=== PATIENT | female | born 1995 | race Caucasian/White ===

== ENCOUNTER 2018-01-29 10:14 | Emergency (ER) | payer OTHER ==
[~2018-01-29] VITALS: Ht 154.9 cm; Wt 44.0 kg
[~2018-01-29 10:14] MED LIST: CEPH250C16 PO
[2018-01-29 10:18] VITALS: BP 113/82
--- NOTE | 2018-01-29 10:22 | NUR ---
PT AMBULATES TO BED 8
--- NOTE | 2018-01-29 10:26 | NUR ---
PATIENT PRESENTS TO ED WITH C/O AB PAIN X 2 DAYS LOLA LOWER QUAD, N/V/D LAST NIGHT . DENIES ANY FEVER, CP, SOB, OR COUGH AT THIS TIME; PATIENT STATES PAIN OF 10/10 AT THIS TIME; VSS; PATIENT POSITIONED FOR COMFORT; HOB ELEVATED; BEDRAILS UP X2; BED DOWN. ER MD MADE AWARE OF PT STATUS.
--- NOTE | 2018-01-29 10:42 | NUR ---
Patient being evaluated by physician at bedside.
[2018-01-29] MEDS ORDERED: DICYCLOMINE HCL LIQUID 10 MG/5 ML UDC PO ONE (10:55)
[2018-01-29] MEDS ORDERED: LOPERAMIDE 2 MG CAP PO ONE (10:55)
[2018-01-29 11:25] VITALS: BP 113/82
--- NOTE | 2018-01-29 11:25 | NUR ---
Patient discharged with v/s stable. Written and verbal after care instructions given and explained. Patient alert, oriented and verbalized understanding of instructions. Ambulatory with steady gait. All questions addressed prior to discharge. ID band removed. Patient advised to follow up with PMD. Rx of BENTYL, IMODIUM given. Patient educated on indication of medication including possible reaction and side effects. Opportunity to ask questions provided and answered.
== END 2018-01-29 11:25 | disposition home or self-care (01) ==
LOC: MED 10:14
DX: R19.7 Diarrhea, unspecified (principal); R10.30 Lower abdominal pain, unspecified; R50.9 Fever, unspecified; R11.2 Nausea with vomiting, unspecified; Z88.0 Allergy status to penicillin; Z88.1 Allergy status to other antibiotic agents; Z79.899 Other long term (current) drug therapy
CPT/HCPCS: 81002; 81025; 99283

== ENCOUNTER 2018-06-05 10:04 | Emergency (ER) | payer OTHER ==
[~2018-06-05] VITALS: Ht 154.9 cm; Wt 39.5 kg
[2018-06-05 10:11] VITALS: BP 124/80
--- NOTE | 2018-06-05 10:16 | NUR ---
PT TO ED WITH C/O TONSIL PAIN. PT DENIES DIFFICULTY SWALLOWING OR SOB. PT PLACED INTO BED, PENDING MD GARCIA.
--- NOTE | 2018-06-05 10:16 | NUR ---
PATIENT AMBULATED TO BED 5.
[2018-06-05] MEDS ORDERED: IBUPROFEN 400 MG TAB PO ONE (10:30)
[2018-06-05] MEDS ORDERED: DEXAMETHASONE 10 MG/ML VIAL IM ONE (10:30)
[2018-06-05 10:49] VITALS: BP 124/80
--- NOTE | 2018-06-05 10:49 | NUR ---
Patient discharged with v/s stable. Written and verbal after care instructions given and explained. Patient alert, oriented and verbalized understanding of instructions. Ambulatory with steady gait. All questions addressed prior to discharge. ID band removed. Patient advised to follow up with PMD. Rx of NAPROSYN, NORCO given. Patient educated on indication of medication including possible reaction and side effects. Opportunity to ask questions provided and answered.
== END 2018-06-05 10:49 | disposition home or self-care (01) ==
LOC: MED 10:04
DX: J36 Peritonsillar abscess (principal); Z88.0 Allergy status to penicillin; Z88.1 Allergy status to other antibiotic agents; Z79.2 Long term (current) use of antibiotics
CPT/HCPCS: 96372; 99283; J1100

== ENCOUNTER 2019-06-27 15:40 | Emergency (ER) | payer OTHER ==
[~2019-06-27] VITALS: Ht 154.9 cm; Wt 45.0 kg
[2019-06-27 15:51] VITALS: BP 121/78
--- NOTE | 2019-06-27 16:03 | NUR ---
AMBULATED TO BED 5
--- NOTE | 2019-06-27 16:21 | NUR ---
23F C/O BL LOWER BACK PAIN RADIATING TO all 4 quadrents of the ABDOMEN X 2 WKS WORSE THE LAST 4 DAYS W/ NAUSEA. DENIES VOMITTING OR DIARRHEA. pt reports taking tylenol yesterday and today at 10am. LMP was 05/09. HX: DENIES rx: denies
--- NOTE | 2019-06-27 16:43 | NUR ---
DR ORTEGA DISCHARGED PT WITH RX OF PEPCID 20MG.
== END 2019-06-27 16:43 | disposition home or self-care (01) ==
LOC: MED 15:40
DX: K29.70 Gastritis, unspecified, without bleeding (principal); F12.90 Cannabis use, unspecified, uncomplicated; Z88.1 Allergy status to other antibiotic agents; Z88.0 Allergy status to penicillin
CPT/HCPCS: 81002; 81025; 99282; 99283

== ENCOUNTER 2019-09-30 10:58 | Emergency (ER) | payer OTHER ==
[~2019-09-30] VITALS: Ht 154.9 cm; Wt 45.4 kg
[2019-09-30 11:03] VITALS: BP 126/76
--- NOTE | 2019-09-30 11:06 | NUR ---
PT AMBULATED TO LOBBY
--- NOTE | 2019-09-30 11:45 | NUR ---
23 Y/O FEMALE PRESENTS TO ER FOR CHECK ON TATTOO S/P SWIMMING AFTER GETTING NEW TATTOO. PT STATES THROBBING TO LT FOREARM AT THIS TIME. SKIN WARM, DRY, INTACT. VSS MEDHX: DENIES
--- NOTE | 2019-09-30 11:46 | NUR ---
DR MARTEL AT BEDSIDE EXAMINING PT
[2019-09-30 11:54] VITALS: BP 126/76
--- NOTE | 2019-09-30 11:55 | NUR ---
Patient discharged with v/s stable. Written and verbal after care instructions given and explained. Patient verbalized understanding. Ambulatory with steady gait. All questions addressed prior to discharge. Advised to follow up with PMD.
== END 2019-09-30 11:48 | disposition home or self-care (01) ==
LOC: MED 10:58
DX: L30.9 Dermatitis, unspecified (principal); Z79.899 Other long term (current) drug therapy; Z88.0 Allergy status to penicillin; Z88.1 Allergy status to other antibiotic agents
CPT/HCPCS: 99281

== ENCOUNTER 2019-11-22 03:23 | Emergency (ER) | payer OTHER ==
[~2019-11-22] VITALS: Ht 154.9 cm; Wt 44.9 kg
[2019-11-22 03:33] VITALS: BP 116/87
--- NOTE | 2019-11-22 03:41 | NUR ---
PT AMBULATED TO BED 11.
--- NOTE | 2019-11-22 03:49 | NUR ---
24 year old female presents to ED with c/o sore throat x 4 days. reports headache along with the sore throat. palpated enlarged lymph node on the left side but pt reports right side to be more painful. pt is a/o x4. denies any other s/sx. denies any injury or trauma. awaiting MSE. pmhx: tonsillitis allx: pcn
[2019-11-22 03:51] VITALS: BP 116/87
[2019-11-22] MEDS ORDERED: HYDROcodone/APAP 10/325 MG 1 TAB TAB PO STA (04:01)
[2019-11-22] MEDS ORDERED: AZITHROMYCIN 250 MG TAB PO ONE (04:05)
--- NOTE | 2019-11-22 04:25 | NUR ---
Patient discharged with v/s stable. Written and verbal after care instructions given and explained. Patient alert, oriented and verbalized understanding of instructions. Ambulatory with steady gait. All questions addressed prior to discharge. ID band removed. Patient advised to follow up with PMD. Rx of azithromycin and motrin given. Patient educated on indication of medication including possible reaction and side effects. Opportunity to ask questions provided and answered.
== END 2019-11-22 04:25 | disposition home or self-care (01) ==
LOC: MED 03:23
DX: J03.90 Acute tonsillitis, unspecified (principal)
CPT/HCPCS: 99284

== ENCOUNTER 2019-11-24 10:11 | Emergency (ER) | payer OTHER ==
[~2019-11-24] VITALS: Ht 154.9 cm; Wt 44.9 kg
[2019-11-24 10:14] VITALS: BP 111/70
--- NOTE | 2019-11-24 10:19 | NUR ---
TAKEN TO BED 12
--- NOTE | 2019-11-24 10:20 | NUR ---
MOVED TO BED 6
--- NOTE | 2019-11-24 10:29 | NUR ---
c/o worsening throat pain now radiating to left ear---adds bodyaches
--- NOTE | 2019-11-24 10:33 | NUR ---
strep throat swab collected and handed to lab
[2019-11-24 10:45] VITALS: BP 111/70
--- NOTE | 2019-11-24 10:46 | NUR ---
Patient discharged with v/s stable. Written and verbal after care instructions given and explained. Patient alert, oriented and verbalized understanding of instructions. Ambulatory with steady gait. All questions addressed prior to discharge. ID band removed. Patient advised to follow up with PMD. Rx of clindamycin/norco given. Patient educated on indication of medication including possible reaction and side effects. Opportunity to ask questions provided and answered.
== END 2019-11-24 10:46 | disposition home or self-care (01) ==
LOC: MED 10:11
DX: R07.0 Pain in throat (principal); M54.2 Cervicalgia; Z79.899 Other long term (current) drug therapy; Z88.0 Allergy status to penicillin; Z88.1 Allergy status to other antibiotic agents
CPT/HCPCS: 87081; 99283

== ENCOUNTER 2020-06-29 08:17 | Emergency (ER) | payer OTHER ==
[~2020-06-29] VITALS: Ht 154.9 cm; Wt 44.9 kg
[2020-06-29 08:22] VITALS: BP 104/70
--- NOTE | 2020-06-29 08:28 | NUR ---
AMBULATED TO BED 5
--- NOTE | 2020-06-29 08:35 | NUR ---
24 YEAR OLD FEMALE COMPLAINS OF ABDOMINAL PAIN X 1.5 WEEKS. PT STATES SOME NAUSEA, DENIES VOMITTING. PT STATES DIARRHEA. PT DENIES BLOOD IN STOOL. PT AOX4, BREATHING EVEN AND UNLABORED, SKIN WARM AND DRY. BED IN LOWEST POSITION, LOCKED, BED RAIL UPX1. PMH - DENIES ALLERGIES - PCN, AMOXICILLIN
--- NOTE | 2020-06-29 08:49 | NUR ---
DR CHARLES AT BEDSIDE EXAMINING PATIENT
[2020-06-29] MEDS ORDERED: KETOROLAC 15 MG/ML VIAL IVP ONE (08:55)
[2020-06-29 09:12] LABS: BASOPHILS % (AUTO) 0.6 % (0.0-2.0); EOSINOPHILS # (AUTO) 0.1 K/uL (0-0.4); EOSINOPHILS % (AUTO) 1.9 % (0.0-4.0); HEMATOCRIT 41.3 % (36-48); HEMOGLOBIN 13.9 g/dL (12.0-16.0); LYMPHOCYTES # (AUTO) 1.7 K/uL (2.5-16.5); LYMPHOCYTES % (AUTO) 25.7 % (20.5-51.1); MEAN CORPUSCULAR HEMOGLOBIN 30 pg (27-31); MEAN CORPUSCULAR HGB CONC 34 g/dL (33-37); MEAN CORPUSCULAR VOLUME 89.4 fL (80-94); MONOCYTES # (AUTO) 0.3 K/uL (0.8-1.0); NEUTROPHILS # (AUTO) 4.5 K/uL (1.8-7.7); NEUTROPHILS % (AUTO) 66.8 % (42.2-75.2); PLATELET COUNT (AUTO) 345 K/uL (140-450); RED BLOOD CELL COUNT(AUTO) 4.62 MIL/uL (4.20-5.40); RED CELL DISTRIBUTION WIDTH 13.1 % (11.6-13.7); WHITE BLOOD COUNT (AUTO) 6.8 K/uL (4.8-10.8)
[2020-06-29 09:22] LABS: ALBUMIN 4.2 g/dL (3.4-5.0); ANION GAP 13.3 (8-16); CARBON DIOXIDE 25.6 mmol/L (21-32); CREATININE 0.8 mg/dL (0.6-1.3); POTASSIUM 3.9 mmol/L (3.5-5.1); TOTAL BILIRUBIN 0.2 mg/dL (0.0-1.0)
[2020-06-29 09:54] LABS: APPEARANCE,URINE CLOUDY (CLEAR); BILIRUBIN,URINE NEGATIVE (NEGATIVE); BLOOD, URINE 3+ (NEGATIVE); COLOR,URINE RED (YELLOW); LEUKOCYTE ESTERASE ,URINE NEGATIVE (NEGATIVE); NITRITE, URINE NEGATIVE (NEGATIVE); UGLUCOSE NEGATIVE (NEGATIVE)
[2020-06-29 10:03] LABS: RBC,URINE 0-5 /HPF (0-5)
--- NOTE | 2020-06-29 10:06 | NUR ---
ULTRASOUND AT BEDSIDE
--- NOTE | 2020-06-29 10:30 | NUR ---
Female Top Cager accompanied female patient for Pelvic Exam.
[2020-06-29 11:04] VITALS: BP 106/71
== END 2020-06-29 11:05 | disposition home or self-care (01) ==
LOC: MED 08:17
DX: R10.9 Unspecified abdominal pain (principal); Z88.0 Allergy status to penicillin; Z88.1 Allergy status to other antibiotic agents; Z79.899 Other long term (current) drug therapy
CPT/HCPCS: 36415; 76700; 76830; 80053; 81001; 81025; 83690; 85025; 87086; 87210; 96374; 99285; J1885

== ENCOUNTER 2021-01-20 19:09 | Emergency (ER) | payer OTHER ==
[~2021-01-20] VITALS: Ht 154.9 cm; Wt 45.4 kg
[2021-01-20 21:18] VITALS: BP 132/94
--- NOTE | 2021-01-20 21:29 | NUR ---
PT IN RR COLLECTING CLEAN CATCH.
[2021-01-20 22:00] LABS: BASOPHILS # (AUTO) 0.1 K/uL (0.00-0.22); BASOPHILS % (AUTO) 0.8 % (0.0-2.0); EOSINOPHILS # (AUTO) 0.1 K/uL (0-0.4); EOSINOPHILS % (AUTO) 1.4 % (0.0-4.0); HEMATOCRIT 41.7 % (36-48); HEMOGLOBIN 14.1 g/dL (12.0-16.0); LYMPHOCYTES # (AUTO) 3.6 K/uL (2.5-16.5); LYMPHOCYTES % (AUTO) 37.1 % (20.5-51.1); MEAN CORPUSCULAR HEMOGLOBIN 30 pg (27-31); MEAN CORPUSCULAR HGB CONC 34 g/dL (33-37); MEAN CORPUSCULAR VOLUME 88.2 fL (80-94); MONOCYTES # (AUTO) 0.6 K/uL (0.8-1.0); MONOCYTES % (AUTO) 6.6 % (1.7-9.3); NEUTROPHILS # (AUTO) 5.3 K/uL (1.8-7.7); NEUTROPHILS % (AUTO) 54.1 % (42.2-75.2); PLATELET COUNT (AUTO) 364 K/uL (140-450); RED BLOOD CELL COUNT(AUTO) 4.73 MIL/uL (4.20-5.40); RED CELL DISTRIBUTION WIDTH 13.7 % (11.6-13.7); WHITE BLOOD COUNT (AUTO) 9.8 K/uL (4.8-10.8)
[2021-01-20 22:16] LABS: ALBUMIN 4.4 g/dL (3.4-5.0); ANION GAP 11.8 (8-16); ASPARTATE AMINOTRANSFERASE 63 U/L (15-37); CARBON DIOXIDE 30.3 mmol/L (21-32); CHLORIDE 106 mmol/L (98-107); CREATININE 0.9 mg/dL (0.6-1.3); GFR ARICAN-AMERICAN 98 mL/min (>90); GLUCOSE 89 mg/dL (74-106); POTASSIUM 5.1 mmol/L (3.5-5.1); SODIUM SERUM 143 mmol/L (136-145); TOTAL BILIRUBIN 0.3 mg/dL (0.0-1.0); UREA NITROGEN, BLOOD 13 mg/dL (7-18)
[2021-01-20 22:17] LABS: BARBITURATE, URINE NEGATIVE ng/ml (NEG <=200); BENZODIAZEPINE, URINE NEGATIVE ng/mL (NEG <=200); CANNABINOID, URINE POSITIVE ng/mL (NEG <=50); COCAINE, URINE NEGATIVE ng/mL (NEG <=300); OPIATE, URINE NEGATIVE ng/mL (NEG <=2000); PHENCYCLIDINE SCREEN,URINE NEGATIVE ng/mL (NEG <=25)
[2021-01-20 22:45] VITALS: BP 128/87
== END 2021-01-20 22:45 | disposition home or self-care (01) ==
LOC: MED 19:09
DX: M79.651 Pain in right thigh (principal); M79.652 Pain in left thigh; F12.10 Cannabis abuse, uncomplicated; F15.10 Other stimulant abuse, uncomplicated; Z88.0 Allergy status to penicillin; Z88.1 Allergy status to other antibiotic agents; Z79.899 Other long term (current) drug therapy
CPT/HCPCS: 36415; 80053; 80305; 84703; 85025; 99283; G0482

== ENCOUNTER 2021-06-10 16:28 | Emergency (ER) | payer OTHER ==
[~2021-06-10] VITALS: Ht 154.9 cm; Wt 44.5 kg
[2021-06-10 16:47] VITALS: BP 111/66
--- NOTE | 2021-06-10 17:27 | NUR ---
CPT at bedside drawing labs.
--- NOTE | 2021-06-10 17:37 | NUR ---
25 y/o Female C/O abdmonial pain x 1 day. Patient has pain that wraps around her pelvis. Patient states pain is a burning/ stretching feeling. Pain level is 9/10. Patient also states burning while urination that started yesterday. Patient also is complaining of N/V and diarrhea. with light headedness. Patient took Tylenol 5 hours ago with no relief per patient. LMP: 06/07/21 Medical History: NONE Medication: NONE ALLERGY: PENICILLIN, AMOXICILLIN
[2021-06-10 17:50] LABS: BASOPHILS # (AUTO) 0.1 K/uL (0.00-0.22); BASOPHILS % (AUTO) 0.5 % (0.0-2.0); EOSINOPHILS % (AUTO) 0.1 % (0.0-4.0); HEMATOCRIT 39.3 % (36-48); HEMOGLOBIN 13.4 g/dL (12.0-16.0); LYMPHOCYTES # (AUTO) 1.6 K/uL (2.5-16.5); LYMPHOCYTES % (AUTO) 11.8 % (20.5-51.1); MEAN CORPUSCULAR HEMOGLOBIN 29 pg (27-31); MEAN CORPUSCULAR HGB CONC 34 g/dL (33-37); MEAN CORPUSCULAR VOLUME 85.6 fL (80-94); MONOCYTES # (AUTO) 0.7 K/uL (0.8-1.0); MONOCYTES % (AUTO) 5.3 % (1.7-9.3); NEUTROPHILS % (AUTO) 82.3 % (42.2-75.2); PLATELET COUNT (AUTO) 411 K/uL (140-450); RED CELL DISTRIBUTION WIDTH 12.8 % (11.6-13.7); WHITE BLOOD COUNT (AUTO) 13.3 K/uL (4.8-10.8)
--- NOTE | 2021-06-10 18:01 | NUR ---
Dr. Ramirez at bedside evaluating patient.
[2021-06-10 18:06] LABS: ANION GAP 14.7 (8-16); CARBON DIOXIDE 25.2 mmol/L (21-32); CREATININE 0.8 mg/dL (0.6-1.3); POTASSIUM 3.9 mmol/L (3.5-5.1)
[2021-06-10 18:10] LABS: BILIRUBIN,URINE NEGATIVE (NEGATIVE); BLOOD, URINE 1+ (NEGATIVE); LEUKOCYTE ESTERASE ,URINE TRACE (NEGATIVE); NITRITE, URINE NEGATIVE (NEGATIVE); UGLUCOSE NEGATIVE (NEGATIVE)
[2021-06-10] MEDS ORDERED: FAMOTIDINE 20 MG TAB PO ONE (18:10)
[2021-06-10] MEDS ORDERED: METOCLOPRAMIDE 10 MG TAB PO ONE (18:10)
[2021-06-10] MEDS ORDERED: HALOPERIDOL IM 5 MG/ML VIAL IM ONE (18:10)
[2021-06-10 18:11] LABS: APPEARANCE,URINE HAZY (CLEAR); COLOR,URINE STRAW (YELLOW)
[2021-06-10 18:12] LABS: ALBUMIN 4.5 g/dL (3.4-5.0); TOTAL BILIRUBIN 0.8 mg/dL (0.0-1.0)
--- NOTE | 2021-06-10 18:22 | NUR ---
Radiology at bedside.
[2021-06-10 18:28] LABS: RBC,URINE 0-5 /HPF (0-5)
--- NOTE | 2021-06-10 19:14 | NUR ---
Report and transfer of care endorsed to ELA Corbett.
[2021-06-10] MEDS ORDERED: FAMO-90 PO (19:53)
[2021-06-10] MEDS ORDERED: ONDA-188 PO (19:55)
[2021-06-10 20:22] VITALS: BP 93/52
--- NOTE | 2021-06-10 20:22 | NUR ---
pt left without signing paperwork. pt vss at time of leaving. note left on d/c paperwork.
[2021-06-11] MEDS ORDERED: CEPH-588 PO (10:22)
== END 2021-06-10 20:22 | disposition home or self-care (01) ==
LOC: MED 16:28
DX: N39.0 Urinary tract infection, site not specified (principal); R10.84 Generalized abdominal pain; R11.2 Nausea with vomiting, unspecified; F12.90 Cannabis use, unspecified, uncomplicated; Z88.0 Allergy status to penicillin; Z88.1 Allergy status to other antibiotic agents; Z79.899 Other long term (current) drug therapy; Z71.6 Tobacco abuse counseling
CPT/HCPCS: 36415; 71045; 74018; 80053; 81001; 81025; 83690; 85025; 87086; 96372; 99284; J1630; J8597; Q0092; Q0163

== ENCOUNTER 2021-08-28 08:22 | Emergency (ER) | payer OTHER ==
[~2021-08-28] VITALS: Ht 154.9 cm; Wt 43.1 kg
[~2021-08-28 08:22] MED LIST changes: +CEPH-588 PO; +FAMO-90 PO; +ONDA-188 PO
[2021-08-28 08:25] VITALS: BP 131/70
--- NOTE | 2021-08-28 08:31 | NUR ---
25 Y/O FEMALE BIB SELF C/O VAGINAL BLEEDING AND 6/10 LOWER ABD PAIN AND CRAMPING SX1 HOUR AGO. PATIENT IS 4 WEEKS . PATIENT IS A0, REPORTS N/V, DENIES DIARRHEA, CP, SOB. DENIES ANY DIZZINESS OR FATIGUE. STATES THAT WHEN SHE WIPES THERE IS BRIGHT RED BLOOD AND "SMALL CLOTS". HAS NOT USED 1 PAD FOR THE BLEEDING. SKIN WARM TO TOUCH. PLACED IN A GOWN, PAD PLACED UNDER, GIVEN A BLANKET PMH: DENIES ALLERGIES: PENICILLINS, AMOXICILLIN
--- NOTE | 2021-08-28 09:00 | NUR ---
JUAN JOSE AT BEDSIDE, URINE WALKED TO LAB HANDED TO NGUYEN
[2021-08-28 09:02] LABS: APPEARANCE,URINE CLEAR (CLEAR); BILIRUBIN,URINE NEGATIVE (NEGATIVE); BLOOD, URINE 3+ (NEGATIVE); COLOR,URINE AMBER (YELLOW); LEUKOCYTE ESTERASE ,URINE TRACE (NEGATIVE); NITRITE, URINE NEGATIVE (NEGATIVE); PH,URINE 6.5 (5.0-9.0); UGLUCOSE NEGATIVE (NEGATIVE)
[2021-08-28 09:03] LABS: BASOPHILS # (AUTO) 0.1 K/uL (0.00-0.22); BASOPHILS % (AUTO) 0.6 % (0.0-2.0); EOSINOPHILS # (AUTO) 0.1 K/uL (0-0.4); EOSINOPHILS % (AUTO) 0.8 % (0.0-4.0); HEMATOCRIT 38.4 % (36-48); HEMOGLOBIN 13.1 g/dL (12.0-16.0); LYMPHOCYTES # (AUTO) 2.6 K/uL (2.5-16.5); LYMPHOCYTES % (AUTO) 32.7 % (20.5-51.1); MEAN CORPUSCULAR HEMOGLOBIN 29 pg (27-31); MEAN CORPUSCULAR HGB CONC 34 g/dL (33-37); MEAN CORPUSCULAR VOLUME 84.6 fL (80-94); MONOCYTES # (AUTO) 0.4 K/uL (0.8-1.0); NEUTROPHILS # (AUTO) 4.9 K/uL (1.8-7.7); NEUTROPHILS % (AUTO) 60.9 % (42.2-75.2); PLATELET COUNT (AUTO) 360 K/uL (140-450); RED BLOOD CELL COUNT(AUTO) 4.54 MIL/uL (4.20-5.40); RED CELL DISTRIBUTION WIDTH 13.1 % (11.6-13.7); WHITE BLOOD COUNT (AUTO) 8.1 K/uL (4.8-10.8)
[2021-08-28 09:23] LABS: ALBUMIN 4.2 g/dL (3.4-5.0); ANION GAP 15.8 (8-16); CARBON DIOXIDE 22.2 mmol/L (21-32); CREATININE 0.8 mg/dL (0.6-1.3); TOTAL BILIRUBIN 0.6 mg/dL (0.0-1.0)
[2021-08-28 09:27] LABS: CALCIUM OXALATE CRYSTALS,UR 0-10 /HPF (None Seen); WBC,URINE 0-5 /HPF (0-5)
[2021-08-28 09:28] LABS: OTHER CASTS, URINE None Seen /LPF (None Seen)
--- NOTE | 2021-08-28 09:59 | NUR ---
DR ENCINAS AT BEDSIDE
--- NOTE | 2021-08-28 10:09 | NUR ---
Patient discharged with v/s stable. Written and verbal after care instructions ABOUT THREATENED given and explained. Patient verbalized understanding. Ambulatory with steady gait. All questions addressed prior to discharge. Advised to follow up with PMD.
== END 2021-08-28 10:09 | disposition home or self-care (01) ==
LOC: MED 08:22
DX: O20.0 Threatened abortion (principal); R11.2 Nausea with vomiting, unspecified; Z3A.01 Less than 8 weeks gestation of pregnancy
CPT/HCPCS: 36415; 76801; 76830; 80053; 81001; 81025; 84702; 85025; 86900; 86901; 99284; Q0092

== ENCOUNTER 2023-06-25 17:13 | Emergency (ER) | payer OTHER ==
[2023-06-26] MEDS ORDERED: EPIN1KIT32 IM (09:16)
[2023-06-26] MEDS ORDERED: DIPH25TA53 PO (09:16)
[2023-06-26] MEDS ORDERED: FAMO-92 PO (09:16)
== END 2023-06-25 18:03 | disposition left against medical advice (07) ==
LOC: MED 17:13
DX: Z00.8 Encounter for other general examination (principal); T78.49XA Other allergy, initial encounter; Z53.21 Procedure and treatment not carried out due to patient leaving prior to being seen by health care provider; X58.XXXA Exposure to other specified factors, initial encounter

== ENCOUNTER 2023-06-26 08:21 | Emergency (ER) | payer OTHER ==
[~2023-06-26] VITALS: Ht 154.9 cm; Wt 43.5 kg
[2023-06-26 08:22] VITALS: BP 122/79; PULSE 84; O2SAT 100
[2023-06-26 09:00] VITALS: O2SAT 100
[2023-06-26] MEDS ORDERED: FAMO-92 PO (09:16)
[2023-06-26] MEDS ORDERED: DIPH25TA53 PO (09:16)
[2023-06-26] MEDS ORDERED: EPIN1KIT32 IM (09:16)
[2023-06-26 09:31] VITALS: BP 122/79; PULSE 84; O2SAT 100
== END 2023-06-26 09:20 | disposition home or self-care (01) ==
LOC: MED 08:21
DX: T78.1XXA Other adverse food reactions, not elsewhere classified, initial encounter (principal); L50.0 Allergic urticaria; Z79.899 Other long term (current) drug therapy; Z88.0 Allergy status to penicillin; Z88.1 Allergy status to other antibiotic agents; X58.XXXA Exposure to other specified factors, initial encounter
CPT/HCPCS: 99283

== ENCOUNTER 2023-07-03 15:26 | Inpatient (IN) | payer OTHER ==
[~2023-07-03] VITALS: Ht 154.9 cm; Wt 44.0 kg
[~2023-07-03 15:26] MED LIST changes: +DIPH25TA53 PO; +EPIN1KIT32 IM; +FAMO-92 PO
[2023-07-03 15:31] VITALS: BP 95/59; PULSE 105; RESP 18; TEMP 98.9; O2SAT 99
[2023-07-03 16:43] LABS: APPEARANCE,URINE CLEAR (CLEAR); BILIRUBIN,URINE NEGATIVE (NEGATIVE); BLOOD, URINE NEGATIVE (NEGATIVE); COLOR,URINE YELLOW (YELLOW); LEUKOCYTE ESTERASE ,URINE TRACE (NEGATIVE); NITRITE, URINE NEGATIVE (NEGATIVE); PH,URINE 6.5 (5.0-9.0); PROTEIN,URINE NEGATIVE (NEGATIVE); UGLUCOSE NEGATIVE (NEGATIVE); UROBILINOGEN,URINE 0.2 EU/dL (0.2 - 1)
[2023-07-03 16:54] LABS: BACTERIA,URINE FEW /HPF (None Seen); SQUAMOUS EPITHELIAL CELL,UR 0-3 (FEW) /LPF (0-3 (FEW)); WBC,URINE 0-5 /HPF (0-5)
[2023-07-03] MEDS: KETOROLAC 30 MG/ML VIAL IVP ONE (17:05)
[2023-07-03 17:17] LABS: BASOPHILS # (AUTO) 0.1 K/uL (0.00-0.22); BASOPHILS % (AUTO) 0.7 % (0.0-2.0); EOSINOPHILS % (AUTO) 0.2 % (0.0-4.0); HEMOGLOBIN 12.5 g/dL (12.0-16.0); LYMPHOCYTES # (AUTO) 2.7 K/uL (2.5-16.5); LYMPHOCYTES % (AUTO) 16.1 % (20.5-51.1); MEAN CORPUSCULAR HEMOGLOBIN 29 pg (27-31); MEAN CORPUSCULAR HGB CONC 34 g/dL (33-37); MEAN CORPUSCULAR VOLUME 84.3 fL (80-94); MONOCYTES # (AUTO) 0.7 K/uL (0.8-1.0); MONOCYTES % (AUTO) 4.1 % (1.7-9.3); NEUTROPHILS # (AUTO) 13.4 K/uL (1.8-7.7); NEUTROPHILS % (AUTO) 78.9 % (42.2-75.2); PLATELET COUNT (AUTO) 389 K/uL (140-450); RED BLOOD CELL COUNT(AUTO) 4.39 MIL/uL (4.20-5.40); RED CELL DISTRIBUTION WIDTH 14.2 % (11.6-13.7); WHITE BLOOD COUNT (AUTO) 16.9 K/uL (4.8-10.8)
[2023-07-03 18:03] LABS: ANION GAP 13.7 (8-16); CALCIUM 9.2 mg/dL (8.5-10.1); CREATININE 0.7 mg/dL (0.6-1.3); POTASSIUM 3.7 mmol/L (3.5-5.1)
[2023-07-03 18:10] LABS: ALBUMIN 4.1 g/dL (3.4-5.0); BILIRUBIN,DIRECT 0.1 mg/dL (0.0-0.3); TOTAL BILIRUBIN 0.5 mg/dL (0.0-1.0)
[2023-07-04] MEDS: MORPHINE SULFATE 4 MG/ML SYR IVP PRN (00:51)
[2023-07-04] MEDS: ONDANSETRON 4 MG/2 ML VIAL IVP PRN (00:51)
[2023-07-04] MEDS: ENOXAPARIN 40 MG/0.4 ML SYR SUBQ SCH (09:00)
[2023-07-04] MEDS: MEDS-TO-BEDS MC SCH (09:00)
[2023-07-04 09:10] VITALS: PULSE 72; RESP 18; O2SAT 99
[2023-07-04 12:00] VITALS: BP 114/68; PULSE 72; PULSE 76; RESP 18; TEMP 97.6; O2SAT 99
[2023-07-04] MEDS: NACL 0.9% 1,000 ML IV SCH (14:29)
[2023-07-04 16:00] VITALS: BP 134/79; PULSE 116; PULSE 67; PULSE 98; RESP 18; TEMP 97; O2SAT 97
[2023-07-04 17:30] VITALS: BP 134/79; PULSE 67; RESP 18; TEMP 97
== END 2023-07-04 18:20 | disposition home or self-care (01) | DRG 247 ==
LOC: MED 15:26 → MTU 22:58 → MED 22:58 → MTU 07-04 06:52
PROVIDERS: ADMIT Hospitalist; ATTEND Hospitalist
PROC: 0DH67UZ Insertion of Feeding Device into Stomach, Via Natural or Artificial Opening (ICD-10-PCS; principal; 2023-07-03)
DX: K56.600 Partial intestinal obstruction, unspecified as to cause (principal); E86.0 Dehydration; Z79.899 Other long term (current) drug therapy
CPT/HCPCS: 36415; 71045; 74250; 80048; 80076; 81001; 83690; 85025; 96374; 96375; 99285; J1650; J1885; J2270; J2405; Q9967